=== PATIENT | male | born 1975 | race Hispanic/Latino ===

== ENCOUNTER 2017-01-31 13:57 | Outpatient (CLI) | payer BC ==
[2017-01-31 14:23] LABS: ALT (SGPT) 45 U/L (8-55); AST (SGOT) 24 U/L (5-34); Albumin 4.3 g/dL (3.5-5.0); Alkaline Phosphatase 63 U/L (40-150); Anion Gap 15 mmol/L (10-20); BUN (Urea Nitrogen) 14 mg/dL (8.9-20.6); Bilirubin, Total 0.5 mg/dL (0.2-1.2); Calc. Creatinine Clearance 0 mL/min (70-130); Carbon Dioxide 26 mmol/L (22-29); Chloride 105 mmol/L (98-107); Estimated GFR-MDRD 61; Globulin 3.1 g/dL (2.4-3.5); Glucose 89 mg/dL (70-105); Lipase 114 U/L (8-78); Potassium 3.7 mmol/L (3.5-5.1); Protein, Total 7.4 g/dL (6.0-8.3); Sodium 142 mmol/L (136-145)
== END 2017-01-31 13:58 | disposition home or self-care (01) ==
LOC: HPCALD 13:57
PROVIDERS: ATTEND Physician Assistant
DX: R19.06 Epigastric swelling, mass or lump (principal)
CPT/HCPCS: 36415; 80053; 83690

== ENCOUNTER 2017-02-08 08:41 | Outpatient (CLI) | payer BC ==
--- NOTE | 2017-02-08 17:34 | ULT ---
ABDOMINAL ULTRASOUND 02/08/17 Ultrasonography of the abdomen was performed for evaluation of abnormal pancreatic enzymes. No prior scans were available for comparison. The patient is quite gassy which obscures many areas of the ab domen. The liver is normal in appearance measuring 14.9 cm in oblique sagittal length. Internally, no jewell s or dilated ducts were seen. The gallbladder contained no signs of stones or wall thickening. The c ommon bile duct was 6 mm wide which is borderline in size. The right kidney was 11.2 cm long and the left was 11.5 cm. Both appear normal. The spleen is normal in appearance, though seen poorly. There was no sign of aortic dilation. Regarding the pancreas, it is seen very poorly due to bowel gas. The visible portions were unremarka ble, but much of the gland was completely obscured. IMPRESSION: No acute abdominal finding. POS: HOME
== END 2017-02-08 08:42 | disposition home or self-care (01) ==
LOC: BURULT 08:41
PROVIDERS: ATTEND Physician Assistant
DX: R74.8 Abnormal levels of other serum enzymes (principal)
CPT/HCPCS: 76700

== ENCOUNTER 2017-02-08 09:38 | Outpatient (CLI) | payer BC ==
[2017-02-08 10:55] LABS: Cardiac Risk 4.6 (Less than 4.5)
[2017-02-08 11:01] LABS: #Basophils 0.1 thou/uL (0.0-0.2); #Eosinphils 0.1 thou/uL (0.0-0.7); #Lymphocytes 2.5 thou/uL (1.20-3.40); #Monocytes 0.4 thou/uL (0.11-0.59); #Neutrophils 2.3 thou/uL (1.40-6.50); %Basophils 0.9 % (0.0-1.0); %Eosinophils 1.9 % (0.0-10.0); %Lymphocytes 47.7 % (21.0-51.0); %Monocytes 7.1 % (0.0-10.0); %Neutrophils 42.4 % (42.0-75.0); Mean Corpuscular HGB CONC 34.6 g/dL (32.0-36.0); Mean Corpuscular Hemoglobin 31.6 pg (27.0-31.0); Mean Corpuscular Volume 91.3 fl (80.0-94.0); Mean Platelet Volume 8.5 fL (7.4-10.4); Platelet Count 225 thou/uL (130-400); RBC Distribution Width 11.4 % (11.5-14.5); Red Blood Cell (RBC) Count 5.07 mill/uL (4.70-6.10); White Blood Cell (WBC) Count 5.3 thou/uL (4.8-10.8)
== END 2017-02-08 09:39 | disposition home or self-care (01) ==
LOC: HPCALD 09:38
PROVIDERS: ATTEND Physician Assistant
DX: R74.8 Abnormal levels of other serum enzymes (principal); R19.8 Other specified symptoms and signs involving the digestive system and abdomen
CPT/HCPCS: 36415; 80061; 84443; 85025

== ENCOUNTER 2017-03-13 08:45 | Outpatient (CLI) | payer BC | END 2017-03-13 08:46 | LOC: HPCALD 08:45 | PROVIDERS: ATTEND Physician Assistant | DX: R74.8 Abnormal levels of other serum enzymes (principal) | CPT/HCPCS: 36415; 83690 ==